=== PATIENT | female | born 1985 | race Caucasian/White ===

== ENCOUNTER 2017-07-11 04:51 | Inpatient (IN) | payer BC ==
[2017-07-11] MEDS ORDERED: Lidocaine 1% 50 ML MDV INJECT PRN (04:58)
[2017-07-11] MEDS ORDERED: Terbutaline 1 MG/ML SDV SUBCUT PRN (04:58)
[2017-07-11] MEDS ORDERED: Sodium Chloride 0.9% 10 ML Syringe FLUSH PRN (04:58)
[2017-07-11] MEDS ORDERED: Carboprost Tromethamine 250 MCG/1 ML Amp IM PRN (04:58)
[2017-07-11] MEDS ORDERED: Sodium Chloride 0.9% 2.5 ML Syringe FLUSH PRN (04:58)
[2017-07-11] MEDS ORDERED: Butorphanol 1 MG/ML SDV IVPUSH PRN (04:58)
[2017-07-11] MEDS ORDERED: Water For Irrigation,Sterile 1,000 ML Container IRR PRN (04:58)
[2017-07-11] MEDS ORDERED: Misoprostol 200 MCG Tab PO PRN (04:58)
[2017-07-11] MEDS ORDERED: Nalbuphine 10 MG/1 ML Vial IVPUSH PRN (04:58)
[2017-07-11] MEDS ORDERED: Methylergonovine 0.2 MG/1 ML Amp IM PRN (04:58)
[2017-07-11] MEDS ORDERED: Oxytocin/Lactated Ringers 30 UNIT/500 ML BAG IV SCH ×2 (05:00)
[2017-07-11] MEDS: Lactated Ringers 1,000 ML IV SCH ×3 (05:25→09:25)
--- NOTE | 2017-07-11 09:09 | PCM.PREANE ---
Preanesthetic Assessment - Anesthesia/Transfusion/Family Hx Anesthesia History: Prior Anesthesia Without Reaction Family History of Anesthesia Reaction: No Transfusion History: No Prior Transfusion(s) - Review of Systems General: No Symptoms Pulmonary: No Symptoms Cardiovascular: No Symptoms Gastrointestinal: No Symptoms Neurological: No Symptoms Other: Reports: None - Physical Assessment Height: 5 ft 10 in Weight: 83.915 kg Mental Status: Alert & Oriented x3 Airway Class: Mallampati = 2 Dentition: Reports: Normal Dentition ROM/Head Extension: Full Lungs: Clear to Auscultation, Normal Respiratory Effort Cardiovascular: Regular Rate, Regular Rhythm - Lab Values: Laboratory Last Values WBC 7.27 K/uL (4.0-11.0) 07/11/17 05:25 RBC 3.86 M/uL (4.30-5.90) L 07/11/17 05:25 Hgb 13.1 g/dL (12.0-16.0) 07/11/17 05:25 Hct 37.0 % (36.0-46.0) 07/11/17 05:25 MCV 95.9 fL (80.0-98.0) 07/11/17 05:25 MCH 33.9 pg (27.0-32.0) H 07/11/17 05:25 MCHC 35.4 g/dL (31.0-37.0) 07/11/17 05:25 RDW Std Deviation 49.6 fl (28.0-62.0) 07/11/17 05:25 RDW Coeff of Jong 14 % (11.0-15.0) 07/11/17 05:25 Plt Count 135 K/uL (150-400) L 07/11/17 05:25 MPV 10.40 fL (7.40-12.00) 07/11/17 05:25 Nucleated RBC % 0.0 /100WBC 07/11/17 05:25 Nucleated RBCs # 0 K/uL 07/11/17 05:25 Blood Type O POSITIVE 07/11/17 05:25 Antibody Screen NEGATIVE 07/11/17 05:25 - Allergies Allergies/Adverse Reactions: Allergies Allergy/AdvReac Type Severity Reaction Status Date / Time No Known Allergies Allergy Verified 07/11/17 04:58 - Blood Blood Available: No - Acknowledgements Anesthesia Type Planned: Epidural Pt an Appropriate Candidate for the Planned Anesthesia: Yes Alternatives and Risks of Anesthesia Discussed w Pt/Guardian: Yes Pt/Guardian Understands and Agrees with Anesthesia Plan: Yes PreAnesthesia Questionnaire - Past Health History Medical/Surgical History: Denies Medical/Surgical History HEENT History: Reports: None SHOE IRONER History: Reports: - Infectious Disease History Infectious Disease History: Reports: Chicken Pox - Past Surgical History HEENT Surgical History: Reports: None - SUBSTANCE USE Smoking Status *Q: Never Smoker Tobacco Use Within Last Twelve Months: No Second Hand Smoke Exposure: No Recreational Drug Use History: No - CURRENT (IN HOUSE) MEDS Current Meds: Current Medications Butorphanol Tartrate (Stadol) 1 mg IVPUSH Q1H PRN PRN Reason: Pain Carboprost Tromethamine (Hemabate Ds) 250 mcg IM ASDIRECTED PRN PRN Reason: Post Hemorrhage Lactated Ringer's (Ringers, Lactated) 1,000 mls @ 150 mls/hr IV ASDIRECTED BRANDI Last Admin: 07/11/17 06:10 Dose: 150 mls/hr Oxytocin/Lactated Ringer's (Pitocin In Lr 30 Units/500 Ml) 30 unit in 500 mls @ 2 mls/hr IV TITRATE BRANDI; 2 MUNITS/MIN PRN Reason: Protocol Stop: 07/12/17 04:59 Oxytocin/Lactated Ringer's (Pitocin In Lr 30 Units/500 Ml) 30 unit in 500 mls @ 2 mls/hr IV TITRATE BRANDI; 2 MUNITS/MIN PRN Reason: Protocol Last Titration: 07/11/17 08:14 Dose: 10 munits/min, 10 mls/hr Lidocaine HCl (Xylocaine 1%) 50 ml INJECT .ONCE PRN PRN Reason: Laceration repair Methylergonovine Maleate (Methergine) 0.2 mg IM ASDIRECTED PRN PRN Reason: Post Hemorrhage Misoprostol (Cytotec) 200 mcg PO .ONCE PRN PRN Reason: Post Hemorrhage Nalbuphine HCl (Nubain) 10 mg IVPUSH Q1H PRN PRN Reason: Pain (severe 7-10) Sodium Chloride (Saline Flush) 10 ml FLUSH ASDIRECTED PRN PRN Reason: Keep Vein Open Sodium Chloride (Saline Flush) 2.5 ml FLUSH ASDIRECTED PRN PRN Reason: Keep Vein Open Sterile Water (Sterile Water For Irrigation) 1,000 ml IRR ASDIRECTED PRN PRN Reason: delivery Terbutaline Sulfate (Brethine) 0.25 mg SUBCUT ASDIRECTED PRN PRN Reason: Tacysystole
[2017-07-11] MEDS ORDERED: fentaNYL 100 MCG/2 ML SDV ONE (09:21)
[2017-07-11] MEDS ORDERED: Ropivacaine 0.2% 2 MG/ML 20 ML SDV ONE (09:22)
[2017-07-11] MEDS ORDERED: Docusate Sodium 100 MG Cap PO PRN (13:05)
[2017-07-11] MEDS ORDERED: Lanolin 100% Cream 7 GM Tube TOP PRN (13:05)
[2017-07-11] MEDS ORDERED: Witch Hazel Medicated Pads 40/Jar TOP PRN (13:05)
[2017-07-11] MEDS ORDERED: Acetaminophen 500 MG Tab PO PRN ×2 (13:05)
[2017-07-11] MEDS ORDERED: Bisacodyl 10 MG Supp RECTAL PRN (13:05)
[2017-07-11] MEDS ORDERED: Ibuprofen 400 MG Tab PO PRN (13:05)
[2017-07-11] MEDS ORDERED: oxyCODONE 5 MG Tab PO PRN (13:05)
[2017-07-11] MEDS ORDERED: Benzocaine/Menthol 20%-0.5% Spray 78 GM Cannister TOP PRN (13:05)
--- NOTE | 2017-07-11 15:40 | OR ---
SURGEON: Lauren Alexis M.D. DATE OF PROCEDURE: 07/11/2017 PREOPERATIVE DIAGNOSIS: A 40 and 1/7th week intrauterine , induction of labor post dates. POSTOPERATIVE DIAGNOSIS: A 40 and 1/7th week intrauterine , induction of labor post dates. PROCEDURE: Pitocin induction of labor, term spontaneous vaginal delivery. ANESTHESIA: Epidural. ESTIMATED BLOOD LOSS: Less than 300 mL. FINDINGS: Live born female, score 9 and 9, weighing 4000 g. Placenta was spontaneous. Schultze intact with 3 vessels. Perineum intact. COMPLICATIONS: None known. DISPOSITION: Mother and baby are in LDRP in good condition. BRIEF INDICATION: This is a 31-year-old female. She is G2 P 1-0-0-1. She presents for induction of labor. Initially 3 cm dilated, posterior. She received IV Pitocin followed by an epidural, followed by artificial rupture of membranes, followed by progression to complete and with category 1 heart tones throughout labor. DESCRIPTION OF PROCEDURE: With the patient in dorsal lithotomy position, the patient pushed over 2 contractions to a 5+ station, at which time the head was delivered spontaneously and atraumatically over the perineum with support with subsequent delivery of the 's shoulders and body without any difficulty. The was handed to the mother in the presence of the nurse attending delivery. The infant was a liveborn female, 9 and 9. Weight is 4000 g. After the cord had ceased to pulsate it was doubly clamped and cut. Cord blood was collected for cord ABGs as well as routine cord blood sampling. Pitocin was initiated after delivery of the to assist with delivery of the placenta, which was delivered spontaneously, Schultze intact with 3 vessels. Upon inspection of the pelvis and perineum, there were no periurethral, vaginal sidewall, cervical, rectal, or perineal lacerations. EBL was less than 300 mL. There were no known complications. Mother and baby are in LDRP in good condition. JACKY / SAM /[id number]
[2017-07-11] MEDS: Ibuprofen 800 MG Tab PO PRN (20:04)
[2017-07-12] MEDS: Ibuprofen 800 MG Tab PO PRN ×2 (02:30→10:45)
[2017-07-12 05:05] VITALS: BP 87/49
--- NOTE | 2017-07-12 08:19 | PCM.PNPP ---
<Eveline Woodard - Last Filed: 07/12/17 08:16> - General Info Date of Service: 07/12/17 Functional Status: Reports: Pain Controlled, Tolerating Diet, Ambulating, Urinating - Review of Systems General: Denies: Fever, Weakness, Fatigue Pulmonary: Denies: Shortness of Breath, Pleuritic Chest Pain, Cough Cardiovascular: Denies: Chest Pain, Palpitations, Dyspnea on Exertion Gastrointestinal: Denies: Abdominal Pain Genitourinary: Denies: Dysuria Psychiatric: Reports: No Symptoms - General Info Date of Service: 07/12/17 - Patient Data Vital Signs - Most Recent: Last Vital Signs Temp 36.6 C 07/12/17 04:23 Pulse 74 07/12/17 04:23 Resp 16 07/12/17 04:23 BP 87/49 L 07/12/17 04:23 Pulse Ox 97 07/12/17 04:23 Weight - Most Recent: 83.915 kg Lab Results - Last 24 Hours: Laboratory Results - last 24 hr 07/12/17 Range/Units 06:09 Hgb 13.6 (12.0-16.0) g/dL Hct 39.7 (36.0-46.0) % Med Orders - Current: Current Medications Acetaminophen (Tylenol Extra Strength) 500 mg PO Q4H PRN PRN Reason: Pain Acetaminophen (Tylenol Extra Strength) 1,000 mg PO Q4H PRN PRN Reason: Pain Last Admin: 07/11/17 22:51 Dose: 1,000 mg Benzocaine/Menthol (Dermoplast Pain Relief 20%-0.5% [place]) 78 gm TOP ASDIRECTED PRN PRN Reason: Perineal Comfort Measure Bisacodyl (Dulcolax) 10 mg RECTAL .ONCE PRN PRN Reason: Constipation Docusate Sodium (Colace) 100 mg PO BID PRN PRN Reason: Constipation Emollient Ointment (Lansinoh Hpa) 0 gm TOP ASDIRECTED PRN PRN Reason: Sore Nipples Ibuprofen (Motrin) 400 mg PO Q4H PRN PRN Reason: Pain Ibuprofen (Motrin) 800 mg PO Q6H PRN PRN Reason: Pain Last Admin: 07/12/17 02:30 Dose: 800 mg Oxycodone HCl (Oxycodone) 5 mg PO Q2H PRN PRN Reason: Pain Last Admin: 07/12/17 07:56 Dose: 5 mg Witch Gabriella (Tucks) 1 pad TOP ASDIRECTED PRN PRN Reason: comfort care Discontinued Medications Butorphanol Tartrate (Stadol) 1 mg IVPUSH Q1H PRN PRN Reason: Pain Carboprost Tromethamine (Hemabate Ds) 250 mcg IM ASDIRECTED PRN PRN Reason: Post Hemorrhage Fentanyl (Sublimaze) Confirm Administered Dose 100 mcg .ROUTE .Picodeon ONE Stop: 07/11/17 09:22 Last Admin: 07/11/17 12:46 Dose: Not Given Lactated Ringer's (Ringers, Lactated) 1,000 mls @ 150 mls/hr IV ASDIRECTED BRANDI Last Infusion: 07/11/17 10:00 Dose: 125 mls/hr Oxytocin/Lactated Ringer's (Pitocin In Lr 30 Units/500 Ml) 30 unit in 500 mls @ 2 mls/hr IV TITRATE BRANDI; 2 MUNITS/MIN PRN Reason: Protocol Stop: 07/12/17 04:59 Last Admin: 07/11/17 12:45 Dose: Not Given Oxytocin/Lactated Ringer's (Pitocin In Lr 30 Units/500 Ml) 30 unit in 500 mls @ 2 mls/hr IV TITRATE BRANDI; 2 MUNITS/MIN PRN Reason: Protocol Last Titration: 07/11/17 12:55 Dose: Infused Ropivacaine/Fentanyl/NS (Fentanyl 2 Mcg-Ropiv 0.2%-Ns) Confirm Administered Dose 100 mls @ as directed .ROUTE .Picodeon ONE Stop: 07/11/17 09:22 Last Admin: 07/11/17 12:45 Dose: Not Given Lidocaine HCl (Xylocaine 1%) 50 ml INJECT .ONCE PRN PRN Reason: Laceration repair Methylergonovine Maleate (Methergine) 0.2 mg IM ASDIRECTED PRN PRN Reason: Post Hemorrhage Misoprostol (Cytotec) 200 mcg PO .ONCE PRN PRN Reason: Post Hemorrhage Nalbuphine HCl (Nubain) 10 mg IVPUSH Q1H PRN PRN Reason: Pain (severe 7-10) Ropivacaine (Naropin 0.2%) Confirm Administered Dose 20 ml .ROUTE .Picodeon ONE Stop: 07/11/17 09:23 Last Admin: 07/11/17 12:47 Dose: Not Given Sodium Chloride (Saline Flush) 10 ml FLUSH ASDIRECTED PRN PRN Reason: Keep Vein Open Sodium Chloride (Saline Flush) 2.5 ml FLUSH ASDIRECTED PRN PRN Reason: Keep Vein Open Sterile Water (Sterile Water For Irrigation) 1,000 ml IRR ASDIRECTED PRN PRN Reason: delivery Terbutaline Sulfate (Brethine) 0.25 mg SUBCUT ASDIRECTED PRN PRN Reason: Tacysystole - Infant Interaction Infant Disposition, : in Room with Family Infant Interaction: Holding Infant Infant Feeding: Breastfed Infant; Nursed Well Support Person: - Recovery Exam Fundal Tone: Firm Fundal Level: At Umbilicus Fundal Placement: Midline Lochia Amount: Scant Lochia Color: Rubra/Red Perineum Description: Intact, Minimal Bruising/Swelling Episiotomy/Laceration: None Bladder Status: Voiding Urinary Elimination: Voided - Exam General: Alert, Oriented Neck: Supple Lungs: Clear to Auscultation, Normal Respiratory Effort Cardiovascular: Regular Rate, Regular Rhythm GI/Abdominal Exam: Normal Bowel Sounds, Soft, Non-Tender, No Organomegaly, No Distention, No Abnormal Bruit, No Mass, Pelvis Stable Psy/Mental Status: Alert, Normal Affect, Normal Mood - Problem List & Annotations (1) Vaginal delivery SNOMED Code(s): 443390610 Code(s): O80 - ENCOUNTER FOR FULL-TERM UNCOMPLICATED DELIVERY Status: Acute Current Visit: Yes - Problem List Review Problem List Initiated/Reviewed/Updated: Yes - Assessment Assessment:: PPD #1 from - minimal pain and lochia. Discharge home today. - Plan Plan:: Discharge home today. Nothing in the vagina for 6 weeks. Continue PNV while breast feeding. Can use OTC ibuprofen/tylenol as needed for pain. Instructed patient to call if she develops fever greater than 101 or bleeding through a large pad an hour. F/U with [facility] in 6 weeks. <Lauren Alexis - Last Filed: 07/12/17 08:42> - Patient Data Vital Signs - Most Recent: Last Vital Signs Temp 36.6 C 07/12/17 04:23 Pulse 74 07/12/17 04:23 Resp 16 07/12/17 04:23 BP 87/49 L 07/12/17 04:23 Pulse Ox 97 07/12/17 04:23 Lab Results - Last 24 Hours: Laboratory Results - last 24 hr 07/12/17 Range/Units 06:09 Hgb 13.6 (12.0-16.0) g/dL Hct 39.7 (36.0-46.0) % Med Orders - Current: Current Medications Acetaminophen (Tylenol Extra Strength) 500 mg PO Q4H PRN PRN Reason: Pain Acetaminophen (Tylenol Extra Strength) 1,000 mg PO Q4H PRN PRN Reason: Pain Last Admin: 07/11/17 22:51 Dose: 1,000 mg Benzocaine/Menthol (Dermoplast Pain Relief 20%-0.5% [place]) 78 gm TOP ASDIRECTED PRN PRN Reason: Perineal Comfort Measure Bisacodyl (Dulcolax) 10 mg RECTAL .ONCE PRN PRN Reason: Constipation Docusate Sodium (Colace) 100 mg PO BID PRN PRN Reason: Constipation Emollient Ointment (Lansinoh Hpa) 0 gm TOP ASDIRECTED PRN PRN Reason: Sore Nipples Ibuprofen (Motrin) 400 mg PO Q4H PRN PRN Reason: Pain Ibuprofen (Motrin) 800 mg PO Q6H PRN PRN Reason: Pain Last Admin: 07/12/17 02:30 Dose: 800 mg Oxycodone HCl (Oxycodone) 5 mg PO Q2H PRN PRN Reason: Pain Last Admin: 07/12/17 07:56 Dose: 5 mg Witch Gabriella (Tucks) 1 pad TOP ASDIRECTED PRN PRN Reason: comfort care Discontinued Medications Butorphanol Tartrate (Stadol) 1 mg IVPUSH Q1H PRN PRN Reason: Pain Carboprost Tromethamine (Hemabate Ds) 250 mcg IM ASDIRECTED PRN PRN Reason: Post Hemorrhage Fentanyl (Sublimaze) Confirm Administered Dose 100 mcg .ROUTE .STK-MED ONE Stop: 07/11/17 09:22 Last Admin: 07/11/17 12:46 Dose: Not Given Lactated Ringer's (Ringers, Lactated) 1,000 mls @ 150 mls/hr IV ASDIRECTED BRANDI Last Infusion: 07/11/17 10:00 Dose: 125 mls/hr Oxytocin/Lactated Ringer's (Pitocin In Lr 30 Units/500 Ml) 30 unit in 500 mls @ 2 mls/hr IV TITRATE BRANDI; 2 MUNITS/MIN PRN Reason: Protocol Stop: 07/12/17 04:59 Last Admin: 07/11/17 12:45 Dose: Not Given Oxytocin/Lactated Ringer's (Pitocin In Lr 30 Units/500 Ml) 30 unit in 500 mls @ 2 mls/hr IV TITRATE BRANDI; 2 MUNITS/MIN PRN Reason: Protocol Last Titration: 07/11/17 12:55 Dose: Infused Ropivacaine/Fentanyl/NS (Fentanyl 2 Mcg-Ropiv 0.2%-Ns) Confirm Administered Dose 100 mls @ as directed .ROUTE .Picodeon ONE Stop: 07/11/17 09:22 Last Admin: 07/11/17 12:45 Dose: Not Given Lidocaine HCl (Xylocaine 1%) 50 ml INJECT .ONCE PRN PRN Reason: Laceration repair Methylergonovine Maleate (Methergine) 0.2 mg IM ASDIRECTED PRN PRN Reason: Post Hemorrhage Misoprostol (Cytotec) 200 mcg PO .ONCE PRN PRN Reason: Post Hemorrhage Nalbuphine HCl (Nubain) 10 mg IVPUSH Q1H PRN PRN Reason: Pain (severe 7-10) Ropivacaine (Naropin 0.2%) Confirm Administered Dose 20 ml .ROUTE .Picodeon ONE Stop: 07/11/17 09:23 Last Admin: 07/11/17 12:47 Dose: Not Given Sodium Chloride (Saline Flush) 10 ml FLUSH ASDIRECTED PRN PRN Reason: Keep Vein Open Sodium Chloride (Saline Flush) 2.5 ml FLUSH ASDIRECTED PRN PRN Reason: Keep Vein Open Sterile Water (Sterile Water For Irrigation) 1,000 ml IRR ASDIRECTED PRN PRN Reason: delivery Terbutaline Sulfate (Brethine) 0.25 mg SUBCUT ASDIRECTED PRN PRN Reason: Tacysystole - My Orders Last 24 Hours: My Active Orders 07/11/17 13:05 Patient Status [ADT] Routine May Shower [RC] ASDIRECTED Up ad Dottie [RC] ASDIRECTED Vital Signs [RC] PER UNIT ROUTINE Acetaminophen [Tylenol Extra Strength] 1,000 mg PO Q4H PRN Acetaminophen [Tylenol Extra Strength] 500 mg PO Q4H PRN Benzocaine/Menthol [Dermoplast Pain Relief 20%-0.5% [place]] 78 gm TOP ASDIRECTED PRN Bisacodyl [Dulcolax] 10 mg RECTAL .ONCE PRN Docusate Sodium [Colace] 100 mg PO BID PRN Ibuprofen [Motrin] 400 mg PO Q4H PRN Ibuprofen [Motrin] 800 mg PO Q6H PRN Lanolin [Lansinoh HPA] See Dose Instructions TOP ASDIRECTED PRN Witch Gabriella [Tucks] 1 pad TOP ASDIRECTED PRN oxyCODONE 5 mg PO Q2H PRN Assess Lochia [WOMSER] Per Unit Routine Assess Uterine Involution [WOMSER] Per Unit Routine Peripheral IV Discontinue [OM.PC] Routine Resuscitation Status Routine 07/11/17 Dinner Regular Diet [DIET] - Plan Plan:: Patient was seen and examined by me and I agree with above.
--- NOTE | 2017-07-12 09:27 | PCM48HPAN ---
Post Anesthesia Note - EVALUATION WITHIN 48HRS OF ANESTHETIC Vital Signs in Normal Range: Yes Patient Participated in Evaluation: Yes Respiratory Function Stable: Yes Airway Patent: Yes Cardiovascular Function Stable: Yes Hydration Status Stable: Yes Pain Control Satisfactory: Yes Nausea and Vomiting Control Satisfactory: Yes Mental Status Recovered: Yes
== END 2017-07-12 14:45 | disposition home or self-care (01) | DRG 560 ==
LOC: MW.OBCHECK 04:51 → MW.OB 04:56 → MW.OBCHECK 04:58 → MW.OB 04:58 → OBSVTOIN 12:06 → MW.OB 17:04
PROVIDERS: ADMIT Obstetrics & Gynecology; ATTEND Obstetrics & Gynecology
PROC: 10E0XZZ Delivery of Products of Conception, External Approach (ICD-10-PCS; principal; 2017-07-11)
PROC: 10907ZC Drainage of Amniotic Fluid, Therapeutic from Products of Conception, Via Natural or Artificial Opening (ICD-10-PCS; 2017-07-11)
PROC: 3E033VJ Introduction of Other Hormone into Peripheral Vein, Percutaneous Approach (ICD-10-PCS; 2017-07-11)
DX: O48.0 Post-term pregnancy (principal); O99.834 Other infection carrier state complicating childbirth; B00.9 Herpesviral infection, unspecified; Z3A.40 40 weeks gestation of pregnancy; Z37.0 Single live birth
CPT/HCPCS: 01967; 36415; 59025; 85014; 85018; 85027; 86850; 86900; 86901; A9270-GY; J7120